=== PATIENT | female | born 1935 | race Caucasian/White ===

== ENCOUNTER 2020-12-27 17:48 | Observation (INO) | payer MEDICARE, OTHER, SELFPAY ==
[2020-12-27] VITALS (11 sets, daily range): BP systolic 152–209; BP diastolic 79–107; PULSE 58–75; RESP 12–19; TEMP 36.6–37.1; O2SAT 97–100; BMI 20.5; BMI 22.1; BMI 22.0
--- NOTE | 2020-12-27 | ECG_ITS ---
APPROVED REPORT Exam: Resting ECG HR:75 bpm ECG Measurements Heart Rate 75 AXES TN 170 P 52 QRSd 106 QRS -46 QT 392 T 68 QTc 437 Conclusion Sinus rhythm with marked sinus arrhythmia Incomplete right bundle branch block Left anterior fascicular block Voltage criteria for left ventricular hypertrophy Abnormal ECG Electronically signed by : Herber Teran, 12/28/2020 19:02:22
[2020-12-27 18:21] LABS: Basophils % 0.4 % (0.1-2.0); Eosinophils # 0.3 K/mm3 (0.0-0.4); Eosinophils % 4.2 % (0.1-12.0); Hematocrit 41.7 % (37.0-47.0); Hemoglobin 13.4 g/dL (12.2-16.2); Lymphocytes # 2.6 K/mm3 (0.7-4.5); Lymphocytes % 32.6 % (10-50); Mean Corpuscular HGB Conc 32.2 g/dL (31.8-35.4); Mean Corpuscular Hemoglobin 30.9 pg (27.0-31.2); Mean Corpuscular Volume 96.2 fl (81-99); Mean Platelet Volume 8.8 fl (7.4-10.4); Monocytes # 0.7 K/mm3 (0.1-1.0); Monocytes % 8.3 % (1.7-9.3); Neutrophils # 4.4 K/mm3 (1.8-7.8); Neutrophils % 54.5 % (37.0-80.0); Platelet Count 207 K/mm3 (142-424); Red Blood Count 4.34 M/mm3 (4.20-5.40); Red Cell Distribution Width 12.5 % (11.5-17.5); White Blood Count 8.1 K/mm3 (4.8-10.8)
--- NOTE | 2020-12-27 18:21 | HMH.EDGENADL ---
ED Disposition Clinical Impression: Chest pain Qualifiers: Chest pain type: other chest pain Qualified Code(s): R07.89 - Other chest pain Disposition: Admitted as Observation Condition on Discharge: Fair Time of Disposition: 19:35 - Critical Care Critical Care Time: No Attestation: On 12/27/20, the high probability of a clinically significant, sudden or life threatening deterioration of the following system(s) required my full and direct attention, intervention and personal management. The time I documented below is in addition to time spent performing reported procedures but includes the following listed in this critical care notation. Medical Decision Making - Medical Records Medical records reviewed: Yes: I reviewed the patient's medical records. - Johnson Inquiry Pt receiving controlled substance: No Vital Signs: 12/27/20 17:49 12/27/20 18:30 Temperature 98.7 F Temperature Source Oral Pulse Rate 66 Pulse Rate [Right] 75 Respiratory Rate 18 12 Blood Pressure 166/96 H Blood Pressure [Right Arm] 173/106 H Blood Pressure Mean [Right Arm] 128 02 Sat by Pulse Oximetry 98 97 - Lab Data Lab Results 12/27/20 18:08: WBC 8.1, RBC 4.34, Hgb 13.4, Hct 41.7, MCV 96.2, MCH 30.9, MCHC 32.2, RDW 12.5, Plt Count 207, MPV 8.8, Neut % (Auto) 54.5, Lymph % (Auto) 32.6, [place] % (Auto) 8.3, Eos % (Auto) 4.2, Baso % (Auto) 0.4, Neut # (Auto) 4.4, Lymph # (Auto) 2.6, [place] # (Auto) 0.7, Eos # (Auto) 0.3, Baso # (Auto) 0.0 12/27/20 18:08: Sodium 140, Potassium 3.7, Chloride 105, Carbon Dioxide 25, Anion Gap 13.7, BUN 18 H, Creatinine 0.60, Estimated Creat Clear 36, Estimated GFR 95, Est GFR ( Amer) 115, Glucose 155 H, Calcium 9.6, Total Bilirubin 0.8, AST 34, ALT 21, Alkaline Phosphatase 115, Troponin I < 0.01, Total Protein 7.0, Albumin 4.6, Globulin 2.4, Albumin/Globulin Ratio 1.9 H 12/27/20 18:08: NT-Pro-B Natriuret Pep 530 H Result diagrams: 12/27/20 18:08 12/27/20 18:08 Orders (Tests/Meds): ED MEDICATIONS Generic Name Dose Route Start Last Admin Trade Name Freq PRN Reason Stop Dose Admin Insulin Human Lispro 0 unit 12/27/20 21:00 Humalog 100 Units/Ml 3ml Vial (Ssi) SQ 01/26/21 20:59 ACHS NANO Protocol Discontinued Medications Generic Name Dose Route Start Last Admin Trade Name Freq PRN Reason Stop Dose Admin Aspirin 325 mg 12/27/20 17:59 12/27/20 18:51 Aspirin 325mg Tablet PO 12/27/20 18:00 325 mg ONCE ONE Administration ORDERS Category Date Time Status CXR 2 view (NOT portable) [XR chest 2V] Stat Exams 12/27/20 18:58 Taken Covid-19 Nasal PCR ([facility]) Routine Lab 12/27/20 18:39 Received Troponin I Q3H Lab 12/27/20 21:00 Ordered Troponin I Q3H Lab 12/28/20 00:00 Ordered UA [Urinalysis and Microscopic] Stat Lab 12/27/20 17:59 Ordered EKG Request [ECG Request by /George] Stat Y 12/27/20 17:58 Ordered - ECG Data Tracing #1 Sinus rhythm with ventricular rate of 75 bpm. QRS 106, QTc 437. Incomplete right bundle branch block. Arrhythmia present. ST segment flattening in V1, V2. No reciprocal elevations. - GAVIN Score for Non-Stemi Age of Patient: 80-89 years old Heart Rate: 70-89 bpm Systolic Blood Pressure: 160-199 mmHg Serum Creatinine: 0.80-1.19 mg/dl CHF Kill[place] Class: I-No CHF Other Risk Factors: None Non-Stemi Risk Score: 117 Medical Decision Narrative: In summary this is an 85-year-old female presenting to the emergency department with chest pressure, tightness, pain. She is clinically stable on arrival. Hypertensive. Other vital signs within normal limits. Concern for acute coronary syndrome, especially given the exertional component. Will obtain CBC, CMP, chest x-ray, EKG, troponin profile. Patient given aspirin. Initial EKG shows abnormality, right bundle branch block and ST segment flattening in V1, V2. But no ST segment elevation myocardial infarction. Initial laboratory results are reassuring. No leukocytosis. No an
[2020-12-27 18:33] LABS: Chloride 105 mmol/L (98-107)
[2020-12-27 18:34] LABS: Potassium 3.7 mmoL/L (3.5-5.1); Sodium 140 mmol/L (136-145)
[2020-12-27 18:36] LABS: Alanine Aminotransferase 21 U/L (12-78); Alkaline Phosphatase 115 U/L (38-126); Aspartate Amino Transferase 34 U/L (14-36); Bilirubin,Total 0.8 mg/dl (0.2-1.3); Blood Urea Nitrogen 18 mg/dl (7-17); Creatinine Clearance Estimated 36 mL/min (50-200); Estimated Glomerular Filt Rate 95 ml/min (>60); GFR (African American) 115 ML/MIN (>60)
[2020-12-27 18:37] LABS: Albumin Level 4.6 g/dl (3.5-5.0); Albumin/Globulin Ratio 1.9 (1.1-1.8); Anion Gap 13.7 mEq/L (5-15); Calcium 9.6 mg/dl (8.4-10.2); Carbon Dioxide 25 mmol/L (22.0-30.0); Globulin 2.4 g/dL (1.3-3.2); Glucose 155 mg/dl (74-100)
[2020-12-27 18:46] LABS: NT Pro Brain Natriuretic Pep. 530 pg/mL (0-450)
[2020-12-27 18:50] LABS: Troponin I < 0.01 ng/ml (0.00-0.034)
--- NOTE | 2020-12-27 18:58 | XR_ITS ---
PROCEDURE: XR CHEST 2V CLINICAL HISTORY: chest pain COMPARISON: CR CXR1 CHEST-PORTABLE from 02/08/2016 FINDINGS: The cardiomediastinal silhouette and pulmonary vascularity are within normal limits. There are minimal atelectatic changes in the lung bases. Thoracic kyphosis with multilevel degenerative disc disease IMPRESSION: Minimal bibasilar atelectasis Dictated by: Sami Marino MD 12/28/2020 06:07 Sami Marino MD in [facility] 12/28/2020 06:07
--- NOTE | 2020-12-27 19:11 | PC.NURSE ---
PATIENT POOR HISTORIAN OF MED REC. COULD NOT PROVIDE A LIST
[2020-12-27 21:45] LABS: Troponin I < 0.01 ng/ml (0.00-0.034)
--- NOTE | 2020-12-27 22:16 | PC.NURSE ---
Addendum entered by Sandip Gerber, EMT 12/27/20 22:18: Report called per Cristhian Hill Original Note: Report called to Pooja on Med-surg
--- NOTE | 2020-12-27 22:33 | PC.NURSE ---
patient up to floor via wheelchair.
--- NOTE | 2020-12-27 22:58 | PC.NURSE ---
patient arrived to floor at 2245 VS stable FSBS 136
[2020-12-27 23:37] LABS: Troponin I < 0.01 ng/ml (0.00-0.034)
[2020-12-28] VITALS: BP 154/77; PULSE 60; PULSE 71; RESP 16; TEMP 36.4; O2SAT 92
[2020-12-28 01:11] LABS: POC Glucose,Bedside 136 (70-110)
[2020-12-28 02:31] LABS: Troponin I < 0.01 ng/ml (0.00-0.034)
[2020-12-28 04:00] VITALS: BP 148/83; PULSE 50; PULSE 52; RESP 16; TEMP 36.5; O2SAT 98
--- NOTE | 2020-12-28 05:12 | PC.NURSE ---
Started new IV on RFA infusing NS. Patient voices no complaints at this times; denies pain; shows no s/s of acute distress noted; VS stable. Call light within reach, bed at lowest level for safety; Will continue to monitor.
[2020-12-28 05:39] LABS: POC Glucose,Bedside 109 (70-110)
[2020-12-28 06:30] VITALS: BMI 22.1
[2020-12-28 07:30] VITALS: PULSE 94; O2SAT 99
--- NOTE | 2020-12-28 07:30 | HMH.PHAVTE ---
[facility] Pharmacy VTE Monitoring - Patient Demographics Admission date: 12/27/20 Report Date: 12/28/20 Time: 07:30 Allergies/Adverse Reactions: Patient Allergies codeine [CODEINE] Allergy (Mild, Verified 04/18/19 14:49) Height: 1.73 m Weight: 66.253 kg Patient Problems: Current Active Problems Chest pain (Acute) - VTE Risk Labs: VTE Related Lab Results Hgb 13.4 g/dL (12.2-16.2) 12/27/20 18:08 Hct 41.7 % (37.0-47.0) 12/27/20 18:08 Plt Count 207 K/mm3 (142-424) 12/27/20 18:08 BUN 18 mg/dl (7-17) H 12/27/20 18:08 Creatinine 0.60 mg/dl (0.52-1.04) 12/27/20 18:08 Estimated Creat Clear 36 mL/min (50-200) 12/27/20 18:08 - Prophylaxis VTE Prophylaxis Ordered?: Yes Types of VTE Prophylaxis: TEDS Knee High Location of Applied Device: Bilateral Lower Extremeties
[2020-12-28 07:41] LABS: Basophils % 0.4 % (0.1-2.0); Eosinophils # 0.4 K/mm3 (0.0-0.4); Eosinophils % 5.2 % (0.1-12.0); Hematocrit 38.7 % (37.0-47.0); Hemoglobin 12.4 g/dL (12.2-16.2); Lymphocytes # 2.5 K/mm3 (0.7-4.5); Lymphocytes % 32.4 % (10-50); Mean Corpuscular HGB Conc 32.1 g/dL (31.8-35.4); Mean Corpuscular Hemoglobin 30.8 pg (27.0-31.2); Mean Corpuscular Volume 95.8 fl (81-99); Mean Platelet Volume 9.3 fl (7.4-10.4); Monocytes # 0.7 K/mm3 (0.1-1.0); Monocytes % 8.7 % (1.7-9.3); Neutrophils # 4.2 K/mm3 (1.8-7.8); Neutrophils % 53.4 % (37.0-80.0); Platelet Count 174 K/mm3 (142-424); Red Blood Count 4.04 M/mm3 (4.20-5.40); Red Cell Distribution Width 12.5 % (11.5-17.5); White Blood Count 7.8 K/mm3 (4.8-10.8)
[2020-12-28 07:46] LABS: Chloride 108 mmol/L (98-107); Potassium 3.3 mmoL/L (3.5-5.1); Sodium 140 mmol/L (136-145)
--- NOTE | 2020-12-28 07:48 | CA_ITS ---
APPROVED REPORT EXAM: Comprehensive 2D, Doppler, and color-flow Echocardiogram Mathematics Professor: Mariza Villagomez RVT Ht: 5 ft 8 in Wt: 146lbs BSA: 1.79 BP: 120/76 mmHg Indications: CP,DM,HERRERA,CM PER PT HISTORY 2D Dimensions LVOT 1.86 cm (M/F) 1.5-2.5 LA Volume 81.20 mL LA Volume Index 45.61 mL/m2 (M/F) 16-34 M-Mode Dimensions RVDd 2.07 cm (0.9-2.6) LA Diam 4.38 cm (1.9-4.0) LVDd 4.80 cm (3.5-5.7) Ao Diam 3.37 cm (2.0-3.7) LVDs 3.28 cm (3.5-5.7) IVSd 1.68 cm (0.6-1.1) PWd 0.71 cm (0.6-1.1) EF (Teich) 59.50% FS 31.70% EDV (Teich) 107.50 mL TAPSE 1.94 (<1.7) ESV (Teich) 43.50 mL LV Diastology E Decel Time 210.00 (160-240 msec) E/A Ratio 0.9 MED E' 4.30 (< 7 cm/sec) E'/MED E' Ratio 13.74 (>14) LAT A' 5.80 cm/s Mitral Valve MV E Max Eugene. 59.00 (40-130 cm/s) MV A Velocity 64.00 (40-130 cm/s) E/A Ratio 0.92 MV Decel. Time 210.00 (160-240 ms) MV PHT 62.00 ms Pulmonary Valve PV Peak Velocity 68.00 (50-150 cm/s) Tricuspid Valve TR P. Velocity 229.00 cm/s RAP Estimate 10.00 mmHg RVSP 31.00 mmHg Left Ventricle Left atrium is moderately enlarged, left ventricle is normal size, mild concentric left ventricular hypertrophy, visually estimated ejection fraction 50%, grade 2 diastolic dysfunction seen without tissue Doppler evidence of raise left atrial pressure. Right Ventricle Right atrium and right ventricle are normal size and contractility. Aortic Valve Aortic valve is thickened and calcified without aortic stenosis or aortic insufficiency. Mitral Valve Mitral valve leaflets are minimally thickened, there is mild mitral regurgitation. Tricuspid Valve Tricuspid grossly normal, there is mild tricuspid regurgitation, calculated right ventricular systolic pressure is 31 mmHg. Pulmonic Valve Pulmonic valve is poorly visualized. Great Vessels Aortic root is normal size. Pericardium No significant pericardial effusion noted. Conclusion 1. Moderately enlarged left atrium, normal left ventricular size, mild concentric left ventricular hypertrophy, visually estimated ejection fraction 50% with no regional wall motion abnormality, grade 2 diastolic dysfunction seen without tissue Doppler evidence of raise left atrial pressure. 2. Mild mitral and tricuspid regurgitation. 3. No significant pericardial effusion noted. Electronically signed by : Angel Diamond, 12/28/2020 10:35:31
[2020-12-28 07:49] LABS: Anion Gap 10.3 mEq/L (5-15); Blood Urea Nitrogen 16 mg/dl (7-17); Calcium 8.8 mg/dl (8.4-10.2); Carbon Dioxide 25 mmol/L (22.0-30.0); Creatinine Clearance Estimated 44 mL/min (50-200); Estimated Glomerular Filt Rate 118 ml/min (>60); GFR (African American) 142 ML/MIN (>60); Glucose 110 mg/dl (74-100)
[2020-12-28 08:00] VITALS: BP 139/101; PULSE 60; PULSE 94; RESP 20; TEMP 36.6; O2SAT 99
--- NOTE | 2020-12-28 08:25 | HMH.HPDC ---
General - General Admission date:: 12/27/20 Discharge date: 12/28/20 *Admission Date: 12/27/20 *Chief complaint: Chest pain *History of present illness: 85-year-old white female with excellent functional status and minimal past medical history except for diabetes for which she takes only low-dose glargine insulin at home and no other medications, who was lifting rocks in her garden yesterday and began to experience some substernal chest pain. Came to the emergency department where she was found to be significantly hypertensive with blood pressures over 200, admitted overnight for serial enzymes and evaluation of blood pressure. [facility] History I have reviewed the patient's past medical history: Yes Medical History: Reports:: Diabetes Mellitus Type 2 Denies:: Cancer, Diabetes Mellitus Type 1, MRSA *Have you ever received a pneumonia vaccine?: No *Have you received a flu vaccine this season?: No Laterality Cases: Bilateral: Other Amputation: No - *Social History Last grade of school completed: Some college Smoking Status: Never smoker Alcohol Intake: never Substance Use Type: denies use *Occupational Status:: retired Housing: house Household Members: none *Travel in the last 8 weeks: Inside the [facility] Family Hx:: Diabetes Review of Systems - Review of Systems Review of systems:: pertinent systems reviewed and negative unless documented below - *Neurologic Denies abnormal speech, Denies dizziness, Denies headache(s), Denies loss of vision Exam Vital signs and Labs for Last 24 Hours: Temp Pulse Resp BP Pulse Ox 97.7 F 52 L 16 148/83 H 98 12/28/20 04:00 12/28/20 04:00 12/28/20 04:00 12/28/20 04:00 12/28/20 04:00 Laboratory Results - last 24 hr 12/27/20 18:08: WBC 8.1, RBC 4.34, Hgb 13.4, Hct 41.7, MCV 96.2, MCH 30.9, MCHC 32.2, RDW 12.5, Plt Count 207, MPV 8.8, Neut % (Auto) 54.5, Lymph % (Auto) 32.6, [place] % (Auto) 8.3, Eos % (Auto) 4.2, Baso % (Auto) 0.4, Neut # (Auto) 4.4, Lymph # (Auto) 2.6, [place] # (Auto) 0.7, Eos # (Auto) 0.3, Baso # (Auto) 0.0 12/27/20 18:08: Sodium 140, Potassium 3.7, Chloride 105, Carbon Dioxide 25, Anion Gap 13.7, BUN 18 H, Creatinine 0.60, Estimated Creat Clear 36, Estimated GFR 95, Est GFR ( Amer) 115, Glucose 155 H, Calcium 9.6, Total Bilirubin 0.8, AST 34, ALT 21, Alkaline Phosphatase 115, Troponin I < 0.01, Total Protein 7.0, Albumin 4.6, Globulin 2.4, Albumin/Globulin Ratio 1.9 H 12/27/20 18:08: NT-Pro-B Natriuret Pep 530 H 12/27/20 21:10: Troponin I < 0.01 12/27/20 22:55: POC Glucose 136 H 12/27/20 23:00: Troponin I < 0.01 12/28/20 01:55: Troponin I < 0.01 12/28/20 05:25: POC Glucose 109 12/28/20 07:15: WBC 7.8, RBC 4.04 L, Hgb 12.4, Hct 38.7, MCV 95.8, MCH 30.8, MCHC 32.1, RDW 12.5, Plt Count 174, MPV 9.3, Neut % (Auto) 53.4, Lymph % (Auto) 32.4, [place] % (Auto) 8.7, Eos % (Auto) 5.2, Baso % (Auto) 0.4, Neut # (Auto) 4.2, Lymph # (Auto) 2.5, [place] # (Auto) 0.7, Eos # (Auto) 0.4, Baso # (Auto) 0.0 12/28/20 07:15: Sodium 140, Potassium 3.3 L, Chloride 108 H, Carbon Dioxide 25, Anion Gap 10.3, BUN 16, Creatinine 0.50 L, Estimated Creat Clear 44, Estimated GFR 118, Est GFR ( Amer) 142 D, Glucose 110 H D, Calcium 8.8 I & O for Last 24 hours: Intake & Output 12/25/20 12/26/20 12/27/20 12/28/20 11:59 11:59 11:59 11:59 Intake Total 240 / 240 Balance 240 / 240 Weight 146 lb 1 oz Microbiology Reports for the Last 24 Hours: Microbiology 12/27/20 18:39 Nasopharyngeal Coronavirus COVID-19 PCR - Final - *Routine HEENT Exam Head: Present: normocephalic Eye: Present: EOMI, PERRL ENT: Present: mucous membranes moist - *Routine Neck Exam Present: supple. Absent: lymphadenopathy - *Routine Respiratory Exam Present: CTA bilaterally - *Routine Cardiovascular Exam Present: RRR - *Routine Abdominal Exam Present: soft, normoactive bowel sounds. Absent: tenderness - *Routine Extremities Exam Absent: cyanosis, clubbing, edema - *Rout
--- NOTE | 2020-12-28 10:31 | PC.NURSE ---
discharge teaching done with patient, no concerns, or needs voiced. no questions at this time
== END 2020-12-28 10:40 | disposition home or self-care (01) ==
LOC: ER 17:55 → 2ND 19:35
PROVIDERS: Admitting Provider Internal Medicine Adolescent Medicine; Emergency Provider Emergency Medicine; PCP Internal Medicine; Visit Provider Internal Medicine Adolescent Medicine
DX: R07.9 Chest pain, unspecified (principal); I10 Essential (primary) hypertension; E11.9 Type 2 diabetes mellitus without complications; Z79.4 Long term (current) use of insulin; Z79.82 Long term (current) use of aspirin; R06.9 Unspecified abnormalities of breathing
CPT/HCPCS: 36415; 71046; 80048; 80053; 82962; 83880; 84484; 85025; 93005; 93306; 99284; G0378; U0003

== ENCOUNTER 2021-07-22 07:47 | Emergency (ER) | payer MEDICARE, OTHER, SELFPAY ==
[2021-07-22] VITALS (9 sets, daily range): BP systolic 115–151; BP diastolic 65–98; PULSE 57–65; RESP 12–20; TEMP 36.6–36.7; O2SAT 98–100; BMI 24.0
--- NOTE | 2021-07-22 07:47 | ECG_ITS ---
APPROVED REPORT Exam: Resting ECG HR:69 bpm ECG Measurements Heart Rate 69 AXES DC 216 P QRSd 118 QRS 27 QT 426 T 225 QTc 456 Conclusion Demand pacemaker, Sinus bradycardia with 1st degree AV block Old ST-T wave changes Abnormal ECG Electronically signed by : Herber Teran MD 07/23/2021 13:53:31
--- NOTE | 2021-07-22 08:02 | HMH.EDGENADL ---
ED Disposition Clinical Impression: Chest pain Disposition: Home, Self-Care Condition on Discharge: Good Instructions: DI for Chest Pain Additional Instructions: Additional instructions for CHEST PAIN: See Dr. Mayberry as soon as possible for further evaluation. Return immediately if worsening chest pain, vomiting, shortness of breath, fever, coughing of blood. Referrals: Provider,Referral, [Primary Care Provider] - - Critical Care Critical Care Time: No Attestation: On 07/22/21, the high probability of a clinically significant, sudden or life threatening deterioration of the following system(s) required my full and direct attention, intervention and personal management. The time I documented below is in addition to time spent performing reported procedures but includes the following listed in this critical care notation. Medical Decision Making - Medical Records Medical records reviewed: Yes: I reviewed the patient's medical records. MR Comment: Discharge summary and heart cath report from [facility] reviewed. The patient did have rapid atrial fibrillation with bradycardia after rate control. Heart cath showed normal coronary arteries. - Johnson Inquiry Pt receiving controlled substance: No Vital Signs: 07/22/21 08:01 07/22/21 08:38 07/22/21 09:01 Temperature 97.9 F Temperature Source Oral Pulse Rate 61 64 Respiratory Rate 18 15 18 Blood Pressure 150/75 H 143/87 H Blood Pressure [Right Arm] 137/76 Blood Pressure Mean 100 98 Blood Pressure Mean [Right Arm] 96 Blood Pressure Source [Right Arm] Automatic Cuff Blood Pressure Position [Right Arm] Supine 02 Sat by Pulse Oximetry 99 98 100 Oxygen Delivery Method Room Air 07/22/21 09:31 07/22/21 10:00 07/22/21 10:31 Temperature Temperature Source Pulse Rate 59 L 63 57 L Respiratory Rate 16 12 15 Blood Pressure 124/71 151/89 H 127/87 Blood Pressure [Right Arm] Blood Pressure Mean 94 109 103 Blood Pressure Mean [Right Arm] Blood Pressure Source [Right Arm] Blood Pressure Position [Right Arm] 02 Sat by Pulse Oximetry 98 98 99 Oxygen Delivery Method 07/22/21 11:01 07/22/21 11:30 07/22/21 12:05 Temperature 98.1 F Temperature Source Pulse Rate 65 62 64 Respiratory Rate 18 20 15 Blood Pressure 141/98 H 132/68 115/65 Blood Pressure [Right Arm] Blood Pressure Mean 112 89 Blood Pressure Mean [Right Arm] Blood Pressure Source [Right Arm] Blood Pressure Position [Right Arm] 02 Sat by Pulse Oximetry 99 99 Oxygen Delivery Method Room Air - Lab Data Lab Results 07/22/21 08:29: WBC 10.8, RBC 4.24, Hgb 13.1, Hct 41.5, MCV 98.0, MCH 30.8, MCHC 31.5 L, RDW 13.1, Plt Count 194, MPV 9.5, Neut % (Auto) 72.6, Lymph % (Auto) 17.4, [place] % (Auto) 5.4, Eos % (Auto) 3.7, Baso % (Auto) 0.9, Neut # (Auto) 7.9 H, Lymph # (Auto) 1.9, [place] # (Auto) 0.6, Eos # (Auto) 0.4, Baso # (Auto) 0.1 07/22/21 08:29: Sodium 140, Potassium 5.1, Chloride 103, Carbon Dioxide 31 H, Anion Gap 11.1, BUN 16, Creatinine 0.50 L, Estimated Creat Clear 45, Estimated GFR 118, Est GFR ( Amer) 142, Glucose 87, Calcium 9.3, Troponin I < 0.01 07/22/21 10:37: Troponin I < 0.01 Result diagrams: 07/22/21 08:29 07/22/21 08:29 Orders (Tests/Meds): ORDERS Category Date Time Status Consult to Cardiology [CONS] Routine Cons 07/22/21 09:06 Active - Radiology Data #1 Image(s): Chest Image Reviewed: Yes I reviewed the patient's radiology image, Yes I have reviewed radiologist's interpretation PROCEDURE: XR CHEST PORTABLE CLINICAL HISTORY: chest pain COMPARISON: CR CXR1 CHEST-PORTABLE from 02/08/2016 CR XR CHEST 2V from 12/27/2020 FINDINGS: Bipolar pacemaker is present from left subclavian approach. The leads appear in satisfactory position on the frontal view of the chest. Mild cardiomegaly without failure. Minimal scarring in the left lung base. Lungs are otherwise kelsie
--- NOTE | 2021-07-22 08:05 | XR_ITS ---
PROCEDURE: XR CHEST PORTABLE CLINICAL HISTORY: chest pain COMPARISON: CR CXR1 CHEST-PORTABLE from 02/08/2016 CR XR CHEST 2V from 12/27/2020 FINDINGS: Bipolar pacemaker is present from left subclavian approach. The leads appear in satisfactory position on the frontal view of the chest. Mild cardiomegaly without failure. Minimal scarring in the left lung base. Lungs are otherwise clear. No acute bony abnormalities. IMPRESSION: No acute findings. Dictated by: Sami Marino MD 07/22/2021 08:33 Sami Marino MD in [facility] 07/22/2021 08:33
--- NOTE | 2021-07-22 08:15 | PC.NURSE ---
Chest xray in progress
[2021-07-22 08:36] LABS: Basophils # 0.1 K/mm3 (0-0.2); Basophils % 0.9 % (0.1-2.0); Eosinophils # 0.4 K/mm3 (0.0-0.4); Eosinophils % 3.7 % (0.1-12.0); Hematocrit 41.5 % (37.0-47.0); Hemoglobin 13.1 g/dL (12.2-16.2); Lymphocytes # 1.9 K/mm3 (0.7-4.5); Lymphocytes % 17.4 % (10-50); Mean Corpuscular HGB Conc 31.5 g/dL (31.8-35.4); Mean Corpuscular Hemoglobin 30.8 pg (27.0-31.2); Mean Platelet Volume 9.5 fl (7.4-10.4); Monocytes # 0.6 K/mm3 (0.1-1.0); Monocytes % 5.4 % (1.7-9.3); Neutrophils # 7.9 K/mm3 (1.8-7.8); Neutrophils % 72.6 % (37.0-80.0); Platelet Count 194 K/mm3 (142-424); Red Blood Count 4.24 M/mm3 (4.20-5.40); Red Cell Distribution Width 13.1 % (11.5-17.5); White Blood Count 10.8 K/mm3 (4.8-10.8)
[2021-07-22 08:47] LABS: Anion Gap 11.1 mEq/L (5-15); Blood Urea Nitrogen 16 mg/dl (7-17); Calcium 9.3 mg/dl (8.4-10.2); Carbon Dioxide 31 mmol/L (22.0-30.0); Chloride 103 mmol/L (98-107); Creatinine Clearance Estimated 45 mL/min (50-200); Estimated Glomerular Filt Rate 118 ml/min (>60); GFR (African American) 142 ML/MIN (>60); Glucose 87 mg/dl (74-100); Potassium 5.1 mmoL/L (3.5-5.1); Sodium 140 mmol/L (136-145)
[2021-07-22 09:03] LABS: Troponin I < 0.01 ng/ml (0.00-0.034)
--- NOTE | 2021-07-22 09:12 | PC.NURSE ---
Dr Roman consulted cardiology, spoke with Michelle
--- NOTE | 2021-07-22 09:41 | HMH.CNCARD ---
History of Present Illness Consult date: 07/22/21 Requesting physician: Ramon Roman Consult reason: chest pain Chief complaint: chest pain History of present illness: 85-year-old female presented to the ED this a.m. with chest pressure. Patient states around 11:00 last evening she awoke experiencing midsternal chest pressure. Patient states she continued to have chest pressure until early this morning. Patient states complaints of dyspnea accompanied with chest pressure. Patient denies chest pain, tightness or pressure at this time. Patient states that dyspnea has improved. Patient denies nausea, vomiting or diarrhea. Patient denies a cough. No swelling noted of the lower extremities. Family at bedside stated that patient did undergo left heart catheterization in April 2021 at [facility] due to chest pain. Family states heart catheterization was fine no stents were needed. Patient was noted to have history of atrial fibrillation after heart catheterization and due to inability to control heart rate with medications, permanent pacemaker was placed (1 month ago)by Dr. Wallace at [facility]. Patient's salesperson parts is Dr. Wallace and stated that she has an appt with her on 08/11/21. Patient is on Eliquis due to PAF. Patient denies bleeding issues. Patient does have a history of asthma. Patient does have history of diabetes which is controlled. History of hypertension in which is controlled on lisinopril. Patient states that she never smoked but did chew tobacco in the past. proposal manager reveals pacemaker on demand. Heart rate 69 bpm. Blood pressure stable. Last echocardiogram was December 2020 which revealed markedly enlarged left atrium, EF 50% with no regional wall motion abnormality, grade 2 diastolic dysfunction. Mild MR and TR noted. Chest x-ray revealed no acute findings. Serial troponins have been drawn. Troponin x1 is negative. Otherwise, labs unremarkable. Echo:Conclusion (12/30) 1. Moderately enlarged left atrium, normal left ventricular size, mild concentric left ventricular hypertrophy, visually estimated ejection fraction 50% with no regional wall motion abnormality, grade 2 diastolic dysfunction seen without tissue Doppler evidence of raise left atrial pressure. 2. Mild mitral and tricuspid regurgitation. 3. No significant pericardial effusion noted. [facility] History I have reviewed the patient's past medical history: Yes Medical History: Reports:: Atrial Fibrillation, Coronary Artery Disease, Diabetes Mellitus Type 2, Hypertension, Internal Pacemaker Denies:: Cancer, Diabetes Mellitus Type 1, MRSA *Have you ever received a pneumonia vaccine?: No *Have you received a flu vaccine this season?: Yes Laterality Cases: Bilateral: Other Amputation: No - *Social History Smoking Status: Never smoker Alcohol Intake: never Substance Use Type: denies use *Occupational Status:: retired Housing: house Household Members: none *Travel in the last 8 weeks: Inside the [facility] Family Hx:: Diabetes Meds Home Medications Medication Instructions Recorded Confirmed Type Aspirin [Aspirin 81mg chewable 81 mg PO DAILY 12/27/20 12/27/20 History tab] Insulin Glargine,Hum.rec.anlog 3 units SQ DAILY 12/27/20 12/27/20 History [Lantus Solostar 100 Units/mL 3mL flexpen] lisinopriL [Lisinopril] 5 mg PO DAILY #30 tab 12/28/20 Rx Allergies Allergy/AdvReac Type Severity Reaction Status Date / Time codeine [CODEINE] Allergy Mild Verified 04/18/19 14:49 Exam Vital signs and Labs for Last 24 Hours: Temp Pulse Resp BP Pulse Ox 97.9 F 61 15 150/75 H 98 07/22/21 08:01 07/22/21 08:38 07/22/21 08:38 07/22/21 08:38 07/22/21 08:38 Laboratory Results - last 24 hr 07/22/21 08:29: WBC 10.8, RBC 4.24, Hgb 13.1, Hct 41.5, MCV 98.0, MCH 30.8, MCHC 31.5 L, RDW 13.1, Plt Count 194, MPV 9.5, Neut % (Auto) 72.6, Lymph % (Auto) 17.4, [place] % (Auto) 5.4, Eos %
[2021-07-22 11:44] LABS: Troponin I < 0.01 ng/ml (0.00-0.034)
== END 2021-07-22 12:05 | disposition home or self-care (01) ==
PROVIDERS: Emergency Provider Emergency Medicine
DX: R07.9 Chest pain, unspecified (principal); R06.09 Other forms of dyspnea; E11.9 Type 2 diabetes mellitus without complications; I48.0 Paroxysmal atrial fibrillation; I10 Essential (primary) hypertension; Z88.5 Allergy status to narcotic agent; Z79.899 Other long term (current) drug therapy
CPT/HCPCS: 71045; 80048; 84484; 85025; 93005; 99283

== ENCOUNTER → 2022-02-28 08:49 | Outpatient (CLI) | payer MEDICARE, OTHER, SELFPAY ==
[2022-02-28 09:46] LABS: Basophils % 0.6 % (0.1-2.0); Eosinophils # 0.4 K/mm3 (0.0-0.4); Eosinophils % 4.8 % (0.1-12.0); Hemoglobin 13.6 g/dL (12.2-16.2); Lymphocytes # 1.6 K/mm3 (0.7-4.5); Lymphocytes % 21.8 % (10-50); Mean Corpuscular HGB Conc 32.4 g/dL (31.8-35.4); Mean Corpuscular Hemoglobin 32.1 pg (27.0-31.2); Mean Corpuscular Volume 99.2 fl (81-99); Mean Platelet Volume 9.7 fl (7.4-10.4); Monocytes # 0.5 K/mm3 (0.1-1.0); Monocytes % 7.3 % (1.7-9.3); Neutrophils # 4.8 K/mm3 (1.8-7.8); Neutrophils % 65.5 % (37.0-80.0); Platelet Count 178 K/mm3 (142-424); Red Blood Count 4.23 M/mm3 (4.20-5.40); Red Cell Distribution Width 12.5 % (11.5-17.5); White Blood Count 7.4 K/mm3 (4.8-10.8)
[2022-02-28 10:13] LABS: Chloride 105 mmol/L (98-107); Potassium 4.2 mmoL/L (3.5-5.1); Sodium 140 mmol/L (136-145)
[2022-02-28 10:15] LABS: Blood Urea Nitrogen 15 mg/dl (7-17)
[2022-02-28 10:16] LABS: Alanine Aminotransferase 21 U/L (12-78); Albumin Level 4.5 g/dl (3.5-5.0); Alkaline Phosphatase 82 U/L (38-126); Anion Gap 10.2 mEq/L (5-15); Aspartate Amino Transferase 36 U/L (14-36); Bilirubin,Total 1.1 mg/dl (0.2-1.3); Calcium 9.8 mg/dl (8.4-10.2); Carbon Dioxide 29 mmol/L (22.0-30.0); Cholesterol 100 mg/dl (140-200); Estimated Glomerular Filt Rate 80 ml/min (>60); GFR (African American) 96 ML/MIN (>60); Globulin 2.2 g/dL (1.3-3.2); Glucose 164 mg/dl (74-100); Total Protein,Serum 6.7 g/dl (6.3-8.2); Triglycerides 69 mg/dl (30-150); VLDL Cholesterol 14 mg/dL (0-40)
[2022-02-28 10:17] LABS: Chol/HDL Ratio 2.3 (1-3.5); HDL Cholesterol 43 mg/dl (40-60)
[2022-02-28 10:24] LABS: NT Pro Brain Natriuretic Pep. 1040 pg/mL (0-450)
[2022-02-28 10:27] LABS: Direct LDL Cholesterol 43.03 mg/dL (100-129)
[2022-02-28 10:46] LABS: Thyroid Stimulating Hormone 2.96 uIU/mL (0.465-4.68)
== END ==
PROVIDERS: PCP Internal Medicine; Visit Provider Nuclear Medicine Nuclear Cardiology
DX: I50.22 Chronic systolic (congestive) heart failure (principal); R53.83 Other fatigue
CPT/HCPCS: 36415; 80053; 80061; 83880; 84443; 85025

== ENCOUNTER → 2022-04-13 11:23 | Outpatient (CLI) | payer MEDICARE, OTHER, SELFPAY ==
[2022-04-13 12:50] LABS: Chloride 104 mmol/L (98-107); Potassium 5.3 mmoL/L (3.5-5.1); Sodium 139 mmol/L (136-145)
[2022-04-13 12:54] LABS: Anion Gap 11.3 mEq/L (5-15); Blood Urea Nitrogen 22 mg/dl (7-17); Calcium 9.6 mg/dl (8.4-10.2); Carbon Dioxide 29 mmol/L (22.0-30.0); Estimated Glomerular Filt Rate 68 ml/min (>60); GFR (African American) 82 ML/MIN (>60); Glucose 191 mg/dl (74-100)
[2022-04-13 13:02] LABS: NT Pro Brain Natriuretic Pep. 3140 pg/mL (0-450)
== END ==
PROVIDERS: PCP Internal Medicine; Visit Provider Nuclear Medicine Nuclear Cardiology
DX: I50.32 Chronic diastolic (congestive) heart failure (principal)
CPT/HCPCS: 36415; 80048; 83880

== ENCOUNTER → 2022-07-08 11:23 | Outpatient (CLI) | payer MEDICARE, OTHER, SELFPAY ==
[2022-07-08 12:51] LABS: Basophils # 0.1 K/mm3 (0-0.2); Basophils % 0.6 % (0.1-2.0); Eosinophils # 0.3 K/mm3 (0.0-0.4); Eosinophils % 3.1 % (0.1-12.0); Hematocrit 38.7 % (37.0-47.0); Hemoglobin 12.2 g/dL (12.2-16.2); Lymphocytes # 1.5 K/mm3 (0.7-4.5); Lymphocytes % 16.2 % (10-50); Mean Corpuscular HGB Conc 31.6 g/dL (31.8-35.4); Mean Corpuscular Hemoglobin 30.3 pg (27.0-31.2); Mean Corpuscular Volume 95.8 fl (81-99); Mean Platelet Volume 11.9 fl (7.4-10.4); Monocytes # 0.7 K/mm3 (0.1-1.0); Monocytes % 8.1 % (1.7-9.3); Neutrophils # 6.5 K/mm3 (1.8-7.8); Platelet Count 209 K/mm3 (142-424); Red Blood Count 4.04 M/mm3 (4.20-5.40); Red Cell Distribution Width 13.2 % (11.5-17.5)
[2022-07-08 13:27] LABS: Chloride 98 mmol/L (98-107); Potassium 3.7 mmoL/L (3.5-5.1); Sodium 136 mmol/L (136-145)
[2022-07-08 13:30] LABS: Alanine Aminotransferase 45 U/L (12-78); Albumin Level 3.5 g/dl (3.5-5.0); Albumin/Globulin Ratio 1.8 (1.1-1.8); Alkaline Phosphatase 84 U/L (38-126); Anion Gap 10.7 mEq/L (5-15); Aspartate Amino Transferase 53 U/L (14-36); Bilirubin,Total 1.3 mg/dl (0.2-1.3); Blood Urea Nitrogen 21 mg/dl (7-17); Carbon Dioxide 31 mmol/L (22.0-30.0); Estimated Glomerular Filt Rate 80 ml/min (>60); GFR (African American) 96 ML/MIN (>60); Globulin 1.9 g/dL (1.3-3.2); Total Protein,Serum 5.4 g/dl (6.3-8.2)
[2022-07-08 13:31] LABS: Calcium 8.7 mg/dl (8.4-10.2); Glucose 220 mg/dl (74-100)
== END ==
PROVIDERS: PCP Internal Medicine; Visit Provider Emergency Medicine
DX: Z95.0 Presence of cardiac pacemaker (principal); Z79.899 Other long term (current) drug therapy
CPT/HCPCS: 36415; 80053; 84443; 85025

== ENCOUNTER → 2023-04-07 10:21 | Outpatient (CLI) | payer MEDICARE, OTHER, SELFPAY ==
[2023-04-07 12:38] LABS: Anion Gap 12.7 mEq/L (5-15); Blood Urea Nitrogen 20 mg/dl (7-17); Calcium 9.3 mg/dl (8.4-10.2); Carbon Dioxide 29 mmol/L (22.0-30.0); Chloride 103 mmol/L (98-107); Estimated Glomerular Filt Rate 95 ml/min (>60); GFR (African American) 115 ML/MIN (>60); Glucose 180 mg/dl (74-100); Potassium 4.7 mmoL/L (3.5-5.1); Sodium 140 mmol/L (136-145)
[2023-04-07 12:47] LABS: NT Pro Brain Natriuretic Pep. 541 pg/mL (0-450)
== END ==
PROVIDERS: PCP Internal Medicine; Visit Provider Nurse Practitioner Family
DX: R06.02 Shortness of breath (principal); M79.89 Other specified soft tissue disorders
CPT/HCPCS: 36415; 80048; 83880